=== PATIENT | female | born 1970 | race Caucasian/White ===

== ENCOUNTER 2019-04-09 06:04 | Day surgery (SDC) | payer BC, OTHER ==
[2019-04-02 09:18] LABS: HEMATOCRIT 31.2 % (36.0-47.0); HEMOGLOBIN 10.2 g/dL (12.0-15.5); MEAN CORPUSCULAR HEMOGLOBIN 27.2 pg (27.0-33.4); MEAN CORPUSCULAR HGB CONC 32.8 g/dL (32.0-36.0); MEAN CORPUSCULAR VOLUME 83 fl (80-97); PLATELET COUNT 264 10^3/uL (150-450); RED BLOOD COUNT 3.75 10^6/uL (3.72-5.28); RED CELL DISTRIBUTION WIDTH 13.9 % (11.5-14.0)
[2019-04-02 09:33] LABS: APPEARANCE,URINE CLEAR; BILIRUBIN,URINE NEGATIVE (NEGATIVE); COLOR,URINE YELLOW; GLUCOSE, URINE NEGATIVE (NEGATIVE); KETONES,URINE NEGATIVE (NEGATIVE); LEUKOCYTE ESTERASE,URINE NEGATIVE (NEGATIVE); NITRITE,URINE NEGATIVE (NEGATIVE); PROTEIN,URINE NEGATIVE (NEGATIVE); URINE SPECIFIC GRAVITY 1.009; UROBILINOGEN,URINE NEGATIVE mg/dL (<2.0)
[2019-04-02 09:41] LABS: ANION GAP 7 (5-19); BLOOD UREA NITROGEN 14 mg/dL (7-20); CALCIUM 9.4 mg/dL (8.4-10.2); CARBON DIOXIDE 26 mmol/L (22-30); CHLORIDE 107 mmol/L (98-107); GLUCOSE 83 mg/dL (75-110); POTASSIUM 4.4 mmol/L (3.6-5.0); SODIUM 140.4 mmol/L (137-145)
[2019-04-09] MEDS ORDERED: CEFAZOLIN 1 GM/D5W RTU 1 GM/50 ML RTUPB IV ONE (07:17)
[2019-04-09] MEDS ORDERED: FENTANYL CITRATE INJ/PF 100 MCG/2 ML AMPUL ONE (07:56)
[2019-04-09] MEDS ORDERED: MIDAZOLAM 2 MG/2 ML INJ ONE (07:56)
[2019-04-09] MEDS ORDERED: KETAMINE HCL INJ 500 MG/10 ML VIAL ONE (07:56)
[2019-04-09] MEDS ORDERED: PROPOFOL INJ 200 MG/20 ML VIAL IV ONE (07:56)
[2019-04-09] MEDS ORDERED: LIDOCAINE 1% INJ-PF (10 MG/ML) 30 ML SDV ONE (07:56)
[2019-04-09] MEDS ORDERED: PROMETHAZINE HCL INJ 25 MG/1 ML VIAL IV PRN ×2 (08:37)
[2019-04-09] MEDS ORDERED: DIPHENHYDRAMINE HCL 50 MG/ML VIAL IV PRN (08:37)
[2019-04-09] MEDS ORDERED: FENTANYL CITRATE INJ/PF 100 MCG/2 ML AMPUL IV PRN ×3 (08:37)
[2019-04-09] MEDS ORDERED: MEPERIDINE HCL/PF INJ 25 MG/1 ML DISP.SYRIN IV PRN (08:37)
[2019-04-09] MEDS ORDERED: MORPHINE SULFATE 10 MG/ML INJ IV PRN (08:37)
--- NOTE | 2019-04-09 09:19 | OPERATIVE REPORT E ---
Operative Report NAME: ROMARIO RUIZ : 1970 AGE: 48Y DATE OF SURGERY: 04/09/2019 ROOM: PREOPERATIVE DIAGNOSIS: Premenopausal menorrhagia. POSTOPERATIVE DIAGNOSES: 1. Premenopausal menorrhagia. 2. Clinical endometrial hyperplasia. OPERATION: Hysteroscopy, D and C. SURGEON: ADAM SHAHID M.D. ANESTHESIA: LMAC, paracervical block. COMPLICATIONS: None. FINDINGS: Hyperplastic endometrium that was global in nature endometrium. Directed removal was not indicated. Gentle curettage was done. INDICATIONS FOR PROCEDURE: The patient had abnormal uterine bleeding unresponsive of usual outpatient management clinically and hyperplastic endometrium on ultrasound consistent with perhaps endometrial polyps, elected to proceed to operative hysteroscopy. The usual risks of bleeding, infection, anesthesia, and damage to organs and tissues had been discussed with the patient who understood. PROCEDURE: The patient was taken to the operating room, placed in the modified lithotomy position, adequate anesthesia ascertained, prepped and draped in the usual manner for a hysteroscopy. LMAC was used. Paracervical block placed, 10 mL plain lidocaine. The cervix was dilated to admit an operative hysteroscope. The above-noted findings were appreciated. Curettage followed productive of a large amount of tissue. Bleeding was nil at the completion of the procedure. The patient was awakened and taken to the recovery room in stable condition. DICTATING PHYSICIAN: ADAM SHAHID M.D. [id number] PHY#: [id number] ID: [id number] JOB#: [id number] ACCT: [id number] cc:ADAM SHAHID M.D. >
[2019-04-09] MEDS ORDERED: PROMETHAZINE HCL INJ 25 MG/1 ML VIAL IM PRN (09:30)
[2019-04-09] MEDS ORDERED: OXYCODONE-ACETAMINOPHEN 5-325 MG TABLET PO PRN (09:30)
[2019-04-09] MEDS ORDERED: MORPHINE INJ 4 MG DOSE (EDIT ROUTE) IV PRN (09:30)
[2019-04-09 11:07] VITALS: BP 121/71
[2019-04-09] MEDS ORDERED: ONDANSETRON HCL INJ/PF 4 MG/2 ML SDV ONE (13:53)
[2019-04-09] MEDS ORDERED: KETOROLAC TROMETHAMINE 60 MG/2 ML SDV ONE (13:53)
[2019-04-09] MEDS ORDERED: IBUPROFEN 800 MG TABLET PO SCH (14:00)
== END 2019-04-09 10:00 | disposition home or self-care (01) ==
LOC: OROUT 06:04
PROVIDERS: ATTEND Specialist
DX: N92.4 Excessive bleeding in the premenopausal period (principal); N84.0 Polyp of corpus uteri; D64.9 Anemia, unspecified; Z87.891 Personal history of nicotine dependence
CPT/HCPCS: 86900; 86901; 36415 ×2; 86850; 85027; 81025; 80048; 81001; 88305 ×2; 58558; J2250; J0690; J1885; J3010; J3490 ×2; J2405; J2704; 952